=== PATIENT | female | born 1960 | race Caucasian/White ===

== ENCOUNTER 2018-04-17 07:58 | Outpatient (CLI) | payer OTHER ==
[~2018-04-17 07:58] MED LIST: EFFEXOR100 MG; EXFORGE 5-1601 EACH; LIBRAX CAPSULE1 CA1; SYNTHROID100 MCG; ZANTAC300 MG; [UNRECOGNIZED DRUG - OTHER]
== END 2018-04-17 08:01 | disposition home or self-care (01) ==
LOC: SONOGRAMA 07:58
DX: E04.1 Nontoxic single thyroid nodule (principal)

== ENCOUNTER 2018-05-08 08:06 | Outpatient (CLI) | payer OTHER | END 2018-05-08 08:14 | disposition home or self-care (01) | LOC: RAD 08:06 | DX: M54.5 Low back pain (principal) ==

== ENCOUNTER 2018-12-02 17:58 | Emergency (ER) | payer OTHER ==
[~2018-12-02] VITALS: Ht 170.2 cm; Wt 71.7 kg
== END 2018-12-02 22:26 | disposition home or self-care (01) ==
LOC: ER 17:58
DX: K52.9 Noninfective gastroenteritis and colitis, unspecified (principal); E86.0 Dehydration

== ENCOUNTER → 2019-06-19 | Outpatient (CLI) | payer OTHER | END | disposition home or self-care (01) | LOC: RX STUDY 09:36 | DX: M47.12 Other spondylosis with myelopathy, cervical region (principal); N60.11 Diffuse cystic mastopathy of right breast; N60.12 Diffuse cystic mastopathy of left breast; R14.0 Abdominal distension (gaseous); R10.13 Epigastric pain; R11.0 Nausea; K31.84 Gastroparesis; K59.09 Other constipation; R10.10 Upper abdominal pain, unspecified | CPT/HCPCS: 72141 ==

== ENCOUNTER 2019-06-20 08:07 | Emergency (ER) | payer OTHER ==
[~2019-06-20] VITALS: Ht 165.1 cm; Wt 70.8 kg
== END 2019-06-20 16:07 | disposition home or self-care (01) ==
LOC: ER 08:07
DX: R10.31 Right lower quadrant pain (principal)

== ENCOUNTER 2019-08-08 13:22 | Outpatient (CLI) | payer OTHER | END 2019-08-08 13:34 | disposition home or self-care (01) | LOC: RAD 13:22 | DX: M54.2 Cervicalgia (principal); M54.6 Pain in thoracic spine; M54.5 Low back pain ==

== ENCOUNTER 2020-05-19 09:17 | Emergency (ER) | payer OTHER ==
[~2020-05-19] VITALS: Ht 165.1 cm; Wt 71.2 kg
[2020-05-19] MEDS ORDERED: ALLEGRA ALLERGY60 MG PO (09:37)
[2020-05-19] MEDS ORDERED: TIROSINT112 MCG PO (09:37)
[2020-05-19] MEDS ORDERED: RESTORIL30 M1 PO (09:38)
== END 2020-05-19 17:26 | disposition home or self-care (01) ==
LOC: ER 09:17
DX: N20.0 Calculus of kidney (principal); R10.31 Right lower quadrant pain; Z03.818 Encounter for observation for suspected exposure to other biological agents ruled out